=== PATIENT | female | born 1945 | race African-American/Black ===

== ENCOUNTER 2021-01-18 02:25 | Emergency (ER) | payer MEDICARE, MEDICAID, SELFPAY ==
--- NOTE | ~2021-01-18 | XR_ITS ---
EXAMINATION: XR CHEST CLINICAL INFORMATION: Chest pain COMPARISON: None TECHNIQUE: Frontal view of the chest was obtained. FINDINGS: Lung volumes are symmetric. No focal consolidation is seen. No evidence of pneumothorax, pleural effusion, or pulmonary edema. The cardiomediastinal contour is unremarkable. No acute osseous findings are seen. XR/XR chest 1V IMPRESSION: No acute cardiopulmonary findings.
[2021-01-18 02:34] VITALS: BP 155/78; BP 178/80; PULSE 100; PULSE 103; RESP 18; TEMP 37.4; O2SAT 97; O2SAT 98; BMI 35.7
--- NOTE | 2021-01-18 02:40 | ECG_ITS ---
Test Reason : CHEST PAIN Blood Pressure : / mmHG Vent. Rate : 094 BPM Atrial Rate : 094 BPM P-R Int : 194 ms QRS Dur : 074 ms QT Int : 346 ms P-R-T Axes : 039 -37 053 degrees QTc Int : 432 ms Normal sinus rhythm Left axis deviation Inferior infarct , age undetermined Anterior infarct , age undetermined Abnormal ECG No previous ECGs available Referred By: Laurent Parikh Electronically Signed By:STEVIE KEATING
--- NOTE | 2021-01-18 02:41 | ED_ITS ---
HPI - Chest Pain General Chief Complaint: Chest Pain Stated Complaint: CP x20 min Time Seen by Provider: 01/18/21 02:38 Source: patient Mode of arrival: EMS Limitations: no limitations History of Present Illness HPI narrative: Patient has history of hypertension, diabetes, schizoaffective disorder came from prison for chest pain started at 01:50 while patient planning to go to bed patient described her pain as in mid chest burning sensation, patient was given 1 nitroglycerin under tongue and 2 baby aspirin and that relieves the pain. No radiation of pain to the arm or jaw no nausea no vomiting no shortness of breath patient never had similar pain in the past Related Data Allergies Allergy/AdvReac Type Severity Reaction Status Date / Time Penicillins Allergy Unknown hives Verified 01/18/21 02:39 Review of Systems Review of Systems: Yes all other systems are reviewed and are negative [facility] Social History Social History Alcohol intake: never Patient Tobacco Use Status: Never used Tobacco Use of substances other than those prescribed or required for medical reasons: No Advance Directives: No Advance Directives Information Provided: No Physical Exam Vital Signs: Vital Signs: Last Vital Signs Temp 99.3 F 01/18/21 02:43 Pulse 88 01/18/21 03:12 Resp 12 01/18/21 03:12 BP 153/65 H 01/18/21 03:12 Pulse Ox 98 01/18/21 03:12 Body Mass Index 35.7 Appearance: Alert. Oriented X3. No acute distress. Eyes: PERRLA, No Nystagmus ENT: Pharynx normal. Oral Mucosa moist Neck: Normal inspection. Neck supple. CVS: Normal heart rate and rhythm. Pulses normal. Respiratory: No respiratory distress. Equal air entry bilateral, no wheezing/rales/rhonchi Abdomen: Soft and nontender. Bowel sounds are present, no mass palpable, no CVA tenderness Skin: Skin warm and dry. Normal skin color. Normal skin turgor. Extremities: No lower extremity edema. No calf tenderness Neuro: Oriented X 3. No motor deficit. No sensory deficit.No cerebellar signs , cranial nerves II-XII intact MDM - Chest Pain MDM Narrative Medical decision making narrative: Patient atypical chest pain 2 sets of high sensitive troponin negative no acute ischemic changes patient was feeling much better after arrival in the ER advised to follow-up with PCP for further evaluation Differential Diagnosis Differential diagnosis: Likely stable angina, atypical chest pain and costochondritis Lab Data Attestation: I reviewed the patient's lab results. Result diagrams: 01/18/21 02:53 01/18/21 02:53 Labs: Lab Results 01/18/21 01/18/21 01/18/21 Range/Units 02:53 02:53 02:53 WBC 9.8 (4.8-10.8) X10*3/uL RBC 4.16 L (4.20-5.50) X10*6/uL Hgb 12.4 (12.0-16.0) g/dl Hct 37.1 (37-47) % MCV 89.2 (80-98) fL MCH 29.8 (27.0-33.0) pg MCHC 33.4 (31.0-35.0) g/dl RDW 12.4 (11.0-16.0) % Plt Count 301 (160-400) X10*3/uL MPV 9.7 (9.4-12.3) fL Immature Gran % (Auto) 0.5 H (0.0-0.4) % Neut % (Auto) 41.7 L (45-73) % Lymph % (Auto) 48.2 H (20-40) % [place] % (Auto) 6.5 (2-11) % Eos % (Auto) 2.9 (0-4) % Baso % (Auto) 0.2 (0-2) % Lymph # (Auto) 4.7 (1.2-4.9) X10*3/uL [place] # (Auto) 0.6 (0.1-1.2) X10*3/uL Eos # (Auto) 0.3 (0.0-0.4) X10*3/uL Baso # (Auto) 0.0 (0.0-0.2) X10*3/uL Abs Immat Gran (auto) 0.05 H (0.00-0.03) X10*3/uL Absolute Neuts (auto) 4.1 (2.0-8.3) X10*3/uL Absolute Nucleated RBC 0.000 (0.0-0.012) X10*3/uL Nucleated RBC % (auto) 0.0 (0.0-0.2) /100WBC Sodium 135 (135-145) mmol/L Potassium 4.3 (3.3-5.1) mmol/L Chloride 101 (96-108) mmol/L Carbon Dioxide 25 (22-29) mmol/L Anion Gap 13 (12-20) BUN 10 (9-16) mg/dL Creatinine 0.70 (0.5-1.4) mg/dL Estim Creat Clear Calc 79.0 Estimated GFR > 60 Random Glucose 207 H (60-115) mg/dL Calcium 9.5 (8.4-10.2) mg/dL Troponin I High Sens < 3.5 (<3.5-17.0) ng/L 01/18/21 Range/Units 04:52 WBC (4.8-10.8) X10*3/uL RBC (4.20-5.50) X10*6/uL Hgb (12.0-16.0) g/dl Hct (37-47) % MCV (80-98) fL MCH (27.0-33.0) pg MCHC (31.0-35.0) g/dl RDW (11.0-16.0) % Plt Count (160-400) X10*3/uL MPV (9.4-12.3) fL Immature Gran % (Auto) (0.0-0.4) % Neut % (Auto) (45-73) % Lymph % (Auto) (20-40) % [place] % (Auto) (2-11) % Eos % (Auto) (0-4) % Baso % (Auto) (0-2) % Lymph # (Auto) (1.2-4.9) X10*3/uL [place] # (Auto) (0.1-1.2) X10*3/uL Eos # (Auto) (0.0-0.4) X10*3/uL Baso # (Auto) (0.0-0.2) X10*3/uL Abs Immat Gran (auto) (0.00-0.03) X10*3/uL Absolute Neuts (auto) (2.0-8.3) X10*3/uL Absolute Nucleated RBC (0.0-0.012) X10*3/uL Nucleated RBC % (auto) (0.0-0.2) /100WBC Sodium (135-145) mmol/L Potassium (3.3-5.1) mmol/L Chloride (96-108) mmol/L Carbon Dioxide (22-29) mmol/L Anion Gap (12-20) BUN (9-16) mg/dL Creatinine (0.5-1.4) mg/dL Estim Creat Clear Calc Estimated GFR Random Glucose (60-115) mg/dL Calcium (8.4-10.2) mg/dL Troponin I High Sens < 3.5 (<3.5-17.0) ng/L ECG Data ECG #1: Attestation: I personally reviewed and interpreted this ECG as follows: Interpretation: Normal sinus rhythm left axis deviation old inferior infarct poor progression of R-waves no acute ischemic changes Discharge Plan Discharge Clinical Impression: Chest pain
[2021-01-18 02:43] VITALS: BP 178/80; PULSE 103; RESP 18; TEMP 37.4; O2SAT 97
[2021-01-18] MEDS: Nitroglycerin 2 % Oint 1 GM Packet 1 INCH TRANSDERMA (02:52)
[2021-01-18 03:12] VITALS: BP 153/65; PULSE 88; RESP 12; O2SAT 98
[2021-01-18 03:17] LABS: Basophils Percent Auto 0.2 % (0-2); Eosinophils Absolute Auto 0.3 X10*3/uL (0.0-0.4); Eosinophils Percent Auto 2.9 % (0-4); Hematocrit 37.1 % (37-47); Hemoglobin 12.4 g/dl (12.0-16.0); Imm Gran Abs Auto 0.05 X10*3/uL (0.00-0.03); Imm Gran Pct Auto 0.5 % (0.0-0.4); Lymphocytes Absolute Auto 4.7 X10*3/uL (1.2-4.9); Lymphocytes Percent Auto 48.2 % (20-40); MANUAL DIFF FLAG NO; Mean Corpuscular HGB Conc 33.4 g/dl (31.0-35.0); Mean Corpuscular Hemoglobin 29.8 pg (27.0-33.0); Mean Corpuscular Volume 89.2 fL (80-98); Mean Platelet Volume 9.7 fL (9.4-12.3); Monocytes Absolute Auto 0.6 X10*3/uL (0.1-1.2); Monocytes Percent Auto 6.5 % (2-11); Neutrophils Absolute Auto 4.1 X10*3/uL (2.0-8.3); Neutrophils Percent Auto 41.7 % (45-73); Platelet Count 301 X10*3/uL (160-400); Red Blood Count 4.16 X10*6/uL (4.20-5.50); Red Cell Distribution Width 12.4 % (11.0-16.0); White Blood Count 9.8 X10*3/uL (4.8-10.8)
[2021-01-18 03:33] LABS: Anion Gap 13 (12-20); Blood Urea Nitrogen 10 mg/dL (9-16); Calcium 9.5 mg/dL (8.4-10.2); Carbon Dioxide 25 mmol/L (22-29); Chloride 101 mmol/L (96-108); Estimated Glomerular Filt Rate > 60; Glucose Random 207 mg/dL (60-115); Potassium 4.3 mmol/L (3.3-5.1); Sodium 135 mmol/L (135-145)
[2021-01-18 03:38] LABS: Troponin-I High Sensitivity < 3.5 ng/L (<3.5-17.0)
[2021-01-18 05:15] LABS: Troponin-I High Sensitivity < 3.5 ng/L (<3.5-17.0)
[2021-01-18 05:56] VITALS: BP 117/50; PULSE 82; RESP 15; TEMP 37; O2SAT 96
--- NOTE | 2021-01-18 06:13 | PC.NURSE ---
Pt alert and oriented, at baseline mental status. Pt denies pain, pt denies chest pain. Pt denies SOB. IV removed. Vitals stable. 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
[2021-01-18 08:00] VITALS: BP 122/52; PULSE 80; RESP 18; TEMP 37; O2SAT 96
== END 2021-01-18 08:08 | disposition skilled nursing facility (03) ==
PROVIDERS: Emergency Provider Internal Medicine; PCP Internal Medicine
DX: R07.9 Chest pain, unspecified (principal); R79.89 Other specified abnormal findings of blood chemistry; Z79.899 Other long term (current) drug therapy
CPT/HCPCS: 36415; 71045; 80048; 84484; 85025; 93005; 99283; 99285

== ENCOUNTER 2022-10-11 07:53 | Outpatient (REF) | payer MEDICARE, MEDICAID, SELFPAY ==
--- NOTE | ~2022-10-11 | MM_ITS ---
EXAMINATION: MM DIAGNOSTIC DIGITAL BREAST TOMOSYNTHESIS, BILATERAL US DIAGNOSTIC ULTRASOUND BREAST, RIGHT CLINICAL INFORMATION: 77-year-old with palpable mass posterior upper outer right breast. Prior remote mammography reported to be over a decade ago from the [place] area and unavailable. TC score under 3%. COMPARISON: None (current study represents new baseline exam). TECHNIQUE: Digital breast tomosynthesis is performed in both the craniocaudal and mediolateral oblique views along with computer-aided detection (CAD). Synthesized 2D images are generated from the tomosynthesis. Additional views are provided: Exaggerated right CC, magnification bilateral CC, magnification right ML x2, magnification left ML. Ultrasound right breast is targeted to the mass posterior upper outer quadrant along with the axilla. Grayscale imaging and color Doppler are performed without and with harmonics. FINDINGS: Mammography: There are scattered areas of fibroglandular density (ACR BI-RADS breast composition Category b). Right breast has 5.5 cm mass at site of clinical concern posterior upper outer quadrant. Margins are mostly smooth but there are small areas posteriorly and lower anterior which are ill-defined. There are some scattered nonspecific calcifications at the anterior aspect of the lesion. There are also incidental benign vascular and medial right ductal secretory calcifications. The axilla and skin contours are unremarkable. Left breast shows no mass or architectural abnormality. There are scattered benign coarse and vascular calcifications. A group of coarse calcifications central lower breast mid depth show fine adjacent amorphous calcifications on additional magnification views. The left axilla and skin contours are unremarkable. Ultrasound: Ultrasound right breast demonstrates a macrolobulated heterogeneous hypoechoic mass at site of clinical concern posterior upper outer breast measuring approximately 5.5 x 4.1 x 4.8 cm. There are some scant surrounding color flow. No definite internal color flow. Additional imaging right axilla shows no enlarged node or node with obvious thick cortex. Management: Results are discussed with the patient at time of visit. Ultrasound-guided core biopsy of the right breast mass is recommended. Also suggest attempt at stereotactic biopsy of the amorphous mid left breast calcifications. Results and recommendations are called to the nursing services specialist (Amparo Keller) at [facility] for Dr. Henri Oh on 10/11/2022. MM/MM tomosynthesis diagnostic BI IMPRESSION: Right: -5 cm mass posterior upper outer quadrant corresponding to the palpable concern. Left: -Fine amorphous calcifications adjacent to benign coarse calcifications mid lower central breast. ASSESSMENT: BI-RADS 4: Suspicious RECOMMENDATION: -Right: Ultrasound-guided core biopsy right breast mass posterior upper outer quadrant. -Left: Stereotactic biopsy amorphous calcifications lower central mid left breast. This patient's information was entered into a reminder system with a target due date for their next breast imaging procedure.
== END 2022-10-11 07:54 | disposition home or self-care (01) ==
LOC: HO.MAMMO 07:53
PROVIDERS: PCP Emergency Medicine; Visit Provider Emergency Medicine
DX: N63.15 Unspecified lump in the right breast, overlapping quadrants (principal)
CPT/HCPCS: 76642; 77062; 77066

== ENCOUNTER 2022-10-21 08:56 | Outpatient (REF) | payer MEDICARE, MEDICAID, SELFPAY ==
--- NOTE | ~2022-10-21 | MM_ITS ---
EXAMINATION: ULTRASOUND GUIDED CORE BIOPSY BREAST, RIGHT POST PROCEDURE DIGITAL MAMMOGRAM, RIGHT CLINICAL INFORMATION: 5 cm heterogeneous hypoechoic mass posterior upper outer right breast corresponding to area of palpable concern. Scant surrounding color flow. No definite internal color flow. COMPARISON: Mammography and right breast ultrasound 10/11/2022, outside mammography 02/21/2014 ([facility]). FINDINGS: Proper informed consent is obtained from the patient's daughter who serves as legal guardian after discussion of the procedure, potential risks and complications, and alternatives. The legal guardian was given an opportunity for questions and appeared to understand. The legal guardian consented to the procedure and signed the consent form. GUIDANCE: Ultrasound-guided; aseptic technique. LESION: 5 cm oval mass posterior upper outer right breast. APPROACH: Lateral medial. ANESTHESIA: 15 mL carbonated 1% lidocaine. DERMATOTOMY: Single skin delvin dermatotomy performed. NEEDLE: 14-gauge Achieve core biopsy device with 13.5-gauge co-axial guide needle. Six (6) core specimens are obtained. There is hemorrhagic possibly purulent fluid also retrieved and two 10 mL syringe sent to lab for both cytology and microbiology. CLIP: HydroMARK; shape: open coil. POST PROCEDURE UNILATERAL DIGITAL MAMMOGRAM: The post biopsy mammogram is performed in separate room using separate digital mammography equipment from the biopsy procedure. Patient was only able to tolerate a single right CC view. There are scattered areas of fibroglandular density (breast composition category: b). The clip marker is in position overlying the large mass sampled. The mass extends beyond the posterior field of view. The patient tolerated the procedure well. No immediate complications. Home instructions reviewed with the patient and her daughter. Final pathology results are pending. Procedure results called to medical massage therapist (Marlyn) for Dr. Sanchez on 10/21/2022. MM/MM diagnostic mammo unilat RT IMPRESSION: 1. Status post ultrasound-guided core biopsy and aspiration right breast with clip placement. 2. Specimens pending (histology, cytology, microbiology). An addendum report will be issued by Dr. Ramirez.
== END 2022-10-21 08:57 | disposition home or self-care (01) ==
LOC: HO.MAMMO 08:56
PROVIDERS: PCP Emergency Medicine; Visit Provider Surgery
DX: R92.8 Other abnormal and inconclusive findings on diagnostic imaging of breast (principal)
CPT/HCPCS: 19083; 77062; 77065; 87070; 87073; 87205; 88112; 88305; 88341; 88342; 88360; 99202; A4648

== ENCOUNTER → 2022-10-28 09:44 | Outpatient (BNVA) | payer MEDICARE, MEDICAID, SELFPAY | PROVIDERS: PCP Emergency Medicine; Referring Provider Radiology Diagnostic Radiology; Visit Provider Surgery | DX: C50.911 Malignant neoplasm of unspecified site of right female breast (principal) | CPT/HCPCS: 99212 ==

== ENCOUNTER → 2022-11-08 11:13 | Outpatient (BNV) | payer MEDICARE, MEDICAID, SELFPAY | PROVIDERS: PCP Emergency Medicine; Visit Provider Internal Medicine | DX: C50.911 Malignant neoplasm of unspecified site of right female breast (principal) | CPT/HCPCS: 99205; 99212; 99215 ==

== ENCOUNTER → 2022-11-17 06:46 | Day surgery (SDC) | payer MEDICARE, MEDICAID, SELFPAY | PROVIDERS: PCP Emergency Medicine; Visit Provider Radiology Diagnostic Radiology | DX: C50.911 Malignant neoplasm of unspecified site of right female breast (principal); Z53.8 Procedure and treatment not carried out for other reasons; Z17.1 Estrogen receptor negative status [ER-]; F03.93 Unspecified dementia, unspecified severity, with mood disturbance; F25.0 Schizoaffective disorder, bipolar type; E11.9 Type 2 diabetes mellitus without complications; Z79.899 Other long term (current) drug therapy; Z79.84 Long term (current) use of oral hypoglycemic drugs; Z88.0 Allergy status to penicillin | CPT/HCPCS: J2250; J3010 ==

== ENCOUNTER 2022-12-01 11:26 | Outpatient (AMB) | payer MEDICARE, MEDICAID, SELFPAY ==
--- NOTE | 2022-12-01 11:32 | A.OFFVIS_ITS ---
Intake Vital Signs 12/01/22 11:42 Height 5 ft Weight 215 lb BMI 42.0 BP 160/80 H Blood Pressure Location Lt brachial Position Sitting Pulse 118 H Intake Visit Reasons: 1 mth follow up RT breast u/s bx Intake Note: Patient is seen in office for one month follow up visit, following right breast. Patient c/o: denies any concerns regarding the breast Foot Miter Operator Required: No Accompanied by: Other Relationship Allergies Penicillins Allergy (Unknown, Verified 12/01/22 11:43) hives Medication List - Last Reconciled 12/01/22 by Evens Sanchez MD acetaminophen 650 mg PO Q4H PRN amantadine HCl 100 mg PO BID amlodipine 2.5 mg PO DAILY aspirin (Adult Aspirin Regimen) 81 mg PO DAILY bisacodyl 10 mg TX DAILY PRN cholecalciferol (vitamin D3) 1,250 mcg PO QWEEK cyanocobalamin (vitamin B-12) 1,000 mcg PO DAILY dextrose 40% (Glutose-15) 10 grams PO Q15M PRN glycopyrrolate (Robinul) 1 mg PO BID haloperidol 5 mg PO DAILY lisinopril 20 mg PO DAILY lorazepam 2 mg PO DAILY PRN magnesium hydroxide (Jamison Milk of Magnesia) 5 mL PO DAILY PRN metformin 1,000 mg PO BID ondansetron 8 mg PO Q8H PRN paliperidone ER (Invega) 6 mg PO QAM simvastatin 10 mg PO BEDTIME sodium phosphates 19-7 gram/118 mL (Fleet Enema) 118 mL TX DAILY PRN tolnaftate 1% (Tinactin) 1 spray topical DAILY trazodone 150 mg PO BEDTIME valproic acid (as sodium salt) 1,500 mg PO DAILY HPI HPI Comments History of Present Illness Details 77-year-old female patient returning for follow-up breast examination. She has a previous history of dementia, schizoaffective disorder, type 2 diabetes, COPD and previous left breast CA now presenting with a recent mammogram which revealed a large mass in the right axilla and suspicious cluster of calcifications in the left breast. She was scheduled for a stereotactic guided core biopsy of the left breast and ultrasound-guided core biopsy of the right breast at the [facility] 10/21/2022. She is and did not breast feed. She does not remember the specifics regarding her left breast cancer. Pathology from the right breast ultrasound-guided core biopsy revealed invasive carcinoma, grade 3 with squamous features and necrosis, ductal carcinoma is favored. Hormone receptor: Triple negative, high Ki 67. She was evaluated by Dr. Lenz and metastatic workup requested including PET scan. A MediPort insertion was also recommended. To date neither of these have been performed. [facility] Medical History Invasive ductal carcinoma of right breast Schizoaffective disorder, bipolar type Type 2 diabetes mellitus without complication Unspecified dementia, unspecified severity, with mood disturbance Surgical History History of lumpectomy of left breast History of surgery on extremity Family History Mother Breast CA Social History Household Members: Caregiver and Other Housing: Correction Alcohol intake: never Patient Tobacco Use Status: Never used Tobacco Current occupational status: disabled Review of Systems Const Unobtainable due to mental condition Physical Exam Vital Signs: Last Vital Signs Pulse 118 H 12/01/22 11:42 BP 160/80 H 12/01/22 11:42 BMI result Body Mass Index 42.0 Const General: cooperative and no acute distress Nutritional Appearance: well nourished Orientation/consciousness: patient oriented x3 Limitations: no limitations HEENT Head: Yes normocephalic and Yes atraumatic Ears: hearing grossly normal bilaterally Chest Other: Large palpable mass in the right axilla measuring approximately 8 cm in diameter firm but mobile within the breast tissue. No skin changes, no nipple discharge, several enlarged lymph nodes appreciated in the right axilla. No other palpable mass. Left breast with an incision in the upper outer quadrant. No palpable mass, skin change, nipple discharge or enlarged lymph nodes. Resp Effort & Inspection: normal respiratory effort, no audible wheezes, no cough and no respiratory distress Cardio Jugular venous distension: no JVD GI Inspection: Yes normal to inspection Skin Other: Warm, dry, no rash Neuro General: patient oriented x3 Extrem General: Yes no clubbing, cyanosis or edema Assessment & Plan Assessment & Plan (1) Invasive ductal carcinoma of right breast: Code(s): C50.911 - Malignant neoplasm of unspecified site of right female breast Plan 77-year-old female patient with a new right breast carcinoma and a previous history of left breast carcinoma. A mass in the right breast at the upper outer quadrant as well as area of calcification in the left breast was noted by mammogram. The patient was unable to tolerate stereotactic guided core biopsy of the left breast therefore six-month follow-up mammogram is recommended. Ultrasound-guided core biopsy of the right breast at the upper outer quadrant was performed on 10/21/2022. Pathology findings revealed invasive carcinoma, grade 3, with squamous features and necrosis, ductal carcinoma is favored. Patient will continue her follow-up with Oncology for further management. PET scan is pending. She is a candidate for neoadjuvant chemotherapy and will return following treatment for possible surgical management. Coding Level of Care Code Est Pt Level 3 (67576) Diagnoses Invasive ductal carcinoma of right breast C50.911
[2022-12-01 11:42] VITALS: BP 160/80; PULSE 118; BMI 42.0
== END 2022-12-01 11:54 | disposition home or self-care (01) ==
PROVIDERS: PCP Emergency Medicine; Visit Provider Surgery
DX: C50.911 Malignant neoplasm of unspecified site of right female breast (principal)
CPT/HCPCS: 99213

== ENCOUNTER → 2022-12-01 11:26 | Outpatient (BNVA) | payer MEDICARE, MEDICAID, SELFPAY | PROVIDERS: PCP Emergency Medicine; Visit Provider Surgery | DX: C50.411 Malignant neoplasm of upper-outer quadrant of right female breast (principal) | CPT/HCPCS: 99212 ==

== ENCOUNTER 2023-01-24 12:05 | Emergency (ER) | payer MEDICARE, MEDICAID, SELFPAY ==
[2023-01-24 12:17] VITALS: BP 110/60; BP 142/74; PULSE 60; PULSE 63; RESP 16; TEMP 36.5; O2SAT 96; O2SAT 98; BMI 36.3
[2023-01-24 12:28] VITALS: BP 148/51; PULSE 72; RESP 20; TEMP 36.6; O2SAT 99
--- NOTE | 2023-01-24 12:29 | ED_ITS ---
HPI - General Adult General Chief complaint: General Medical Stated complaint: L BREAST PAIN,H/O STAGE 4 BREAST CA, FROM SNF PER Time Seen by Provider: 01/24/23 12:13 Source: patient, EMS and old records reviewed Mode of arrival: EMS Limitations: no limitations History of Present Illness HPI narrative: 77 yo female with history of COPD, DM2, dementia, schizoaffective disorder, stage IV invasive ductal carcinoma of the right breast diagnosed 10/2022 with mets to the lung, hx left breast cancer 10+ years ago s/p lumpectomy and 5 years of tamoxifen who presents to the ER from assisted living for evaluation of right breast pain. She follows [facility]/ Dr. Lenz and last saw her in the office on 01/18/23. Palliative chemo was discussed and patient declined. She stated she was ready to if it was her time. At the assisted living she has been having worsening pain of the right breast. She was started on tramadol as well as oxycodone with minimal relief. MD complaint: painful right breast mass Onset (ago): day(s) Location: chest Severity: severe Quality: stabbing and aching Pain Consistency: constant Relieving factors: none Exacerbating factors: movement Associated symptoms: denies other symptoms Treatments prior to arrival: none Related Data Home Medications Medication Instructions Recorded Confirmed amantadine HCl 100 mg capsule 100 mg PO BID 10/21/22 01/24/23 amlodipine 2.5 mg tablet 2.5 mg PO DAILY 10/21/22 01/24/23 aspirin 81 mg tablet,delayed 81 mg PO DAILY 10/21/22 01/24/23 release (Adult Aspirin Regimen) cholecalciferol (vitamin D3) 1,250 1,250 mcg PO QWEEK 10/21/22 01/24/23 mcg (50,000 unit) tablet cyanocobalamin (vitamin B-12) 1,000 mcg PO DAILY 10/21/22 01/24/23 1,000 mcg capsule glycopyrrolate 1 mg tablet 1 mg PO BID 10/21/22 01/24/23 (Robinul) haloperidol 5 mg tablet 5 mg PO Q90D 10/21/22 01/24/23 lisinopril 20 mg tablet 20 mg PO DAILY 10/21/22 01/24/23 metformin 1,000 mg tablet 1,000 mg PO BID 10/21/22 01/24/23 simvastatin 10 mg tablet 10 mg PO DAILY@1700 10/21/22 01/24/23 trazodone 150 mg tablet 150 mg PO DAILY@1700 10/21/22 01/24/23 valproic acid (as sodium salt) 250 1,500 mg PO DAILY 10/21/22 01/24/23 mg/5 mL oral solution acetaminophen 325 mg tablet 650 mg PO Q4H PRN Fever Or Pain 11/10/22 01/24/23 paliperidone 6 mg tablet,extended 6 mg PO DAILY 11/10/22 01/24/23 release 24 hr (Invega) tolnaftate 1 % topical spray 1 spray topical WE 11/10/22 01/24/23 powder (Tinactin) lorazepam 2 mg tablet 2 mg PO Q90D PRN Anxiety 01/24/23 01/24/23 paliperidone palm (3 month) 819 819 mg IM Q90D 01/24/23 01/24/23 mg/2.63 mL intramuscular syringe (Invega Trinza) tramadol 50 mg tablet 50 mg PO Q8H PRN Pain 01/24/23 01/24/23 Previous Rx's Medication Instructions Recorded atropine 1 % eye drops 2 drp buccal Q2H PRN secretions 01/24/23 #30 mL haloperidol lactate 2 mg/mL oral 2 mg PO Q4H PRN agitation #30 mL 01/24/23 concentrate morphine concentrate 100 mg/5 mL 5 mg (0.25 mL) PO Q1H PRN pain #30 01/24/23 (20 mg/mL) oral solution mL Allergies Allergy/AdvReac Type Severity Reaction Status Date / Time Penicillins Allergy Unknown hives Verified 12/01/22 11:43 Review of Systems 2 Review of Systems: Yes all other systems are reviewed and are negative [facility] Past Medical History Medical History Invasive ductal carcinoma of right breast Schizoaffective disorder, bipolar type Type 2 diabetes mellitus without complication Unspecified dementia, unspecified severity, with mood disturbance Surgical History History of lumpectomy of left breast History of surgery on extremity Family History Family History Mother Breast CA Social History Social History Household Members: Caregiver and Other Housing: Alf Alcohol intake: never Patient Tobacco Use Status: Never used Tobacco Use of substances other than those prescribed or required for medical reasons: No Advance Directives: Yes Advance Directives on File: Yes Advance Directives Date on File: 11/08/22 Current occupational status: disabled Physical Exam ED Vital Signs: Vital Signs - 24 hr 01/24/23 12:17 01/24/23 12:28 Temperature 97.7 F 97.8 F Pulse Rate 63 72 Respiratory Rate 16 20 Blood Pressure 142/74 H 148/51 H Pulse Oximetry 98 99 Oxygen Delivery Method Room Air BMI result Body Mass Index 36.3 Appearance: Alert. Oriented X2. Pleasant Head: normocephalic, atraumatic. Eyes: Pupils equal, round and reactive to light. ENT: Pharynx normal. No dentition. No tonsillar swelling or exudate. Neck: Normal inspection. Neck supple. CVS: Normal heart rate and rhythm. Pulses normal. Respiratory: No respiratory distress. Breath sounds normal. Abdomen: Soft and nontender. +BS x4 Skin: Skin warm and dry. Normal skin color. right lateral breast with a large tender, erythematous, fluctuant mass. Extremities: No lower extremity edema. No joint swelling. Neuro/psych: Oriented X 2. nonfocal. confused at times, poor historian, nonfocal Medications Administered Discontinued Medications Generic Name Dose Route Start Last Admin Trade Name Freq PRN Reason Stop Dose Admin Morphine Sulfate 15 mg 01/24/23 13:08 01/24/23 13:12 Morphine Sulfate Immed Release 15 Mg Tablet PO 01/24/23 13:09 15 mg ONCE ONE Administration Medical Decision Making Medical Decision Making MDM Narrative: 77 yo female with stage IV breast cancer with large 9.5cm necrotizing right sided breast mass who recently declined palliative chemotherapy here with worsening right breast pain. Dr. Sanchez came to evaluate the patient - does not recommend I&D at this time. Discussed w/ patient's daughter and guardian Ernestine in [place]. Recommended transition to hospice care/ comfort care and she was on board. case management consulted in the ER - PO morphine given case d/w Chanel from Oncology as well. Dr. Lenz [place] country - recommending palliative care when case management spoke [facility]/ Ernestine she was not ready for full transition to hospice but does want her mother to be comfortable. she wants adequate pain control started. facility is recommending starting pain control, observing in the ER to ensure adequate pain control, to make sure she does not require IV narcotics and admission will place in physician observation at this time (15:51). PO diet and liquid morphine ordered. will continue to monitor Differential Diagnosis Differential Diagnoses: The differential diagnosis associated with the presentation includes necrotic cancerous mass, cellulitis, abscess, fungal infection Admission/Observation Consideration of admission/observation: Escalation of care including admission/observation considered Consult Healthcare Provider Management of the patient was discussed with: Deck Steward Dr. Lenz External Record Review External record reviewed: Office record, Outpatient record, Prior outpatient labs and Prior outpatient radiology Prescription Management I considered prescription management with: Pain Medication Chronic Conditions Patient?s care impacted by: Other (stage IV breast cancer) Critical Care Time Critical Care Time Critical Care Time: No Discharge Plan Discharge Clinical Impression: Invasive ductal carcinoma of right breast Patient Disposition: er [facility] Transfer Details: [facility] Instructions: Breast Cancer in Women (DC) Additional Instructions: Give the prescribed medications as needed for your symptoms. Follow up with Dr. Lenz If you develop new or worsening symptoms call 911 or come back to the ER for further evaluation. Prescriptions: New morphine concentrate 100 mg/5 mL (20 mg/mL) solution 5 mg PO Q1H PRN (Reason: pain) Qty: 30 0RF Rx Instructions: Hospice patient Partial Fill upon patient request. haloperidol lactate 2 mg/mL concentrate 2 mg PO Q4H PRN (Reason: agitation) Qty: 30 0RF atropine 1 % drops 2 drp buccal Q2H PRN (Reason: secretions) Qty: 30 0RF No Action Invega Trinza 819 mg/2.63 mL syringe 819 mg IM Q90D lorazepam 2 mg tablet 2 mg PO Q90D PRN (Reason: Anxiety) Rx Instructions: GIVEN 1 HOUR BEFORE INVEGA TRINZA INJECTION tramadol 50 mg Tablet 50 mg PO Q8H PRN (Reason: Pain) acetaminophen 325 mg Tablet 650 mg PO Q4H PRN (Reason: Fever Or Pain) tolnaftate [Tinactin] 1 % Aerosol Powder 1 spray TOPICAL WE Rx Instructions: APPLY WEEKLY AFTER SHOWER paliperidone [Invega] 6 mg tablet extended release 24 hr 6 mg PO DAILY Rx Instructions: GIVE WHOLE IN LARGE AMOUNTS OF PUDDING TO HELP WITH SWALLOWING THIS PILL. simvastatin 10 mg tablet 10 mg PO DAILY@1700 trazodone 150 mg tablet 150 mg PO DAILY@1700 haloperidol 5 mg tablet 5 mg PO Q90D Rx Instructions: GIVEN 1 HOUR BEFORE INVEGA TRINZA INJECTION amlodipine 2.5 mg tablet 2.5 mg PO DAILY aspirin [Adult Aspirin Regimen] 81 mg tablet,delayed release (DR/EC) 81 mg PO DAILY lisinopril 20 mg tablet 20 mg PO DAILY cyanocobalamin (vitamin B-12) 1,000 mcg capsule 1,000 mcg PO DAILY valproic acid (as sodium salt) 250 mg/5 mL solution 1,500 mg PO DAILY Rx Instructions: MIX IN SMALL AMOUNTS OF BEVERAGE TO HELP ADMINISTRATION cholecalciferol (vitamin D3) 1,250 mcg (50,000 unit) tablet 1,250 mcg PO QWEEK Rx Instructions: ADMINISTER ON THE OF EACH MONTH amantadine HCl 100 mg capsule 100 mg PO BID glycopyrrolate [Robinul] 1 mg tablet 1 mg PO BID metformin 1,000 mg tablet 1,000 mg PO BID Referrals: [facility] Oncology/Hematology [Provider Group] (stage IV breast cancer, transition to hospice)
--- NOTE | 2023-01-24 12:36 | PC.NURSE ---
pt alert, confused at baseline. reporting 10/10 right breast pain. right lateral side of right breast is enlarged, red and firm. Per EMS, pt is followed by Dr. Lenz here at [facility] and that they planed to meet here today. Pt changed over to hospital gown. plan of care ongoing
[2023-01-24] MEDS: Morphine Sulfate Immed Release 15 MG TABLET PO (13:12)
--- NOTE | 2023-01-24 14:42 | PHA.MEDREC ---
Pharmacy Consult ? Medication Reconciliation Pharmacy has completed the medication reconciliation. MED REC COMPLETE USING LIST FROM [facility]
--- NOTE | 2023-01-24 15:57 | MHC.CM.ED ---
Addendum entered by Jemima Giron 01/24/23 16:20: Dr Sanchez saw patient while she was in the ER to look at her wound. There is nothing surgical Dr Sanchez can do for patient. Original Note: Received case management consult from Stacey QUIJANO. Patient is a custodial care resident of [facility]. Patient has stage 4 Breast Cancer will lung mets. Patient was sent to the ER due to poor pain control. Patient was given oral Morphine. Stacey QUIJANO spoke with Chanel of oncology. The thought was patient would return to [facility] under hospice. Stacey QUIJANO had a conversation with patient's daughter/guardian, Ernestine, via telephone. Stacey was under the impression patient would return to [facility] with hospice. T/W spoke with Ernestine via telephone at [phone]. Ernestine doesn't feel patient is ready for hospice. Ernestine is interested in pain control and any other testing to help patient. Ernestine requesting hospice information be sent via email. This information was sent via email by T/W. [facility] referral made in [facility]. . Rebecca spoke with Ernestine. Ernestine doesn't feel she is ready to sign the patient onto hospice at this time. Spoke with Emmie, 3rd floor nurse delicatessen department manager of [facility]. Patient will stay in the ER overnight to make sure adequate pain control is being achieved with oral medication. Stacey QUIJANO aware and agreeable. Anticipate patient will return to [facility] via BLS tomorrow. Continue to monitor for d/c needs.
--- NOTE | 2023-01-24 17:30 | PC.NURSE ---
It was brought to my attention pt not in room. This RN and staff searching for pt and unable to find. Hermes on bed pt clothes gone. Security alerted and checking cameras contract technician
--- NOTE | 2023-03-21 14:02 | MHC.HEMONC ---
Triage- Pt's daughter to inform the dept that her mum this morning
== END 2023-01-24 18:21 | disposition left against medical advice (07) ==
PROVIDERS: Emergency Provider Emergency Medicine; PCP Emergency Medicine
DX: C50.911 Malignant neoplasm of unspecified site of right female breast (principal); C78.00 Secondary malignant neoplasm of unspecified lung; E11.9 Type 2 diabetes mellitus without complications; J44.9 Chronic obstructive pulmonary disease, unspecified; F03.90 Unspecified dementia, unspecified severity, without behavioral disturbance, psychotic disturbance, mood disturbance, and anxiety; Z85.3 Personal history of malignant neoplasm of breast

== ENCOUNTER 2023-01-24 17:59 | Emergency (ER) | payer MEDICARE, MEDICAID, SELFPAY ==
--- NOTE | ~2023-01-24 | CT_ITS ---
EXAMINATION: CT CHEST, ABDOMEN AND PELVIS WITHOUT CONTRAST CLINICAL INFORMATION: Pain status-post fall; question rib or hip fracture; breast cancer. COMPARISON: Mammograms, right breast ultrasound and ultrasound-guided right breast biopsy dated 10/21/2022. TECHNIQUE: Multidetector volumetric imaging was performed from the thoracic inlet through the pubic symphysis without oral or intravenous contrast. Sagittal and coronal reformatted images were obtained on the technologist workstation. This CT examination was performed using dose optimization techniques as appropriate, variously including the following: *Automated exposure control. *Adjustment of mA and/or kV according to patient size (this includes techniques or standardized protocols for targeted exams where dose is matched to indication/reason for exam, i.e., extremities or head). *Use of iterative reconstruction technique. DLP: 1666 mGy-cm. FINDINGS: CHEST: LUNGS: Within the anterior segment of the right upper lobe laterally (8:149), a 1.2 x 1.0 cm nodule is seen. Within the medial basal segment of the right lower lobe (8:253), a 3.7 x 3.5 cm mass is is seen. Within the anterior segment of the left upper lobe (8:96), a 1.1 x 0.5 cm nodule is seen. Centrally within the left lower lobe (8:232), a 1.5 x 1.5 cm nodule is seen. There is bibasilar dependent hypoaeration. No infiltrate or groundglass opacity is seen. No contusion is noted. There is mild generalized small airway thickening, likely infectious or inflammatory in etiology. The central airways appear patent. MEDIASTINUM: The thyroid is unremarkable. There is no thoracic aortic aneurysm. There are atherosclerotic calcifications of the great vessel origins and thoracic aorta. There is mild atherosclerotic calcification of the coronary arteries and aortic annulus. No mediastinal or hilar lymphadenopathy is seen. PERICARDIUM/PLEURA: There is no significant effusion. No pleural mass or thickening. CHEST WALL/AXILLA: There is an incompletely covered very large right breast mass, consistent with a known large invasive breast cancer. There are enlarged right axillary lymph nodes, the largest measuring 1.5 x 1.4 cm (5:23). No left axillary lymphadenopathy or bilateral internal mammary lymphadenopathy is seen. OSSEOUS STRUCTURES: There is multi-level lower cervical and thoracic degenerative disc disease and spondylosis, most pronounced at C6-C7 and T8-T9 through T10-T11, where there is vacuum disc phenomenon. There is calcific tendinitis of the left rotator cuff insertion. No acute or aggressive osseous finding is noted. ABDOMEN/PELVIS: LIVER, GALLBLADDER, BILIARY TREE: The liver is normal in size, shape, and attenuation. No focal hepatic lesion or biliary ductal dilatation is present. The gallbladder is unremarkable with no evidence of radiopaque gallstones, gallbladder wall thickening, or pericholecystic inflammatory changes. PANCREAS: Unremarkable. SPLEEN: Unremarkable. ADRENAL GLANDS: Unremarkable. KIDNEYS AND URETERS: The kidneys are normal in size, shape, and attenuation. No hydronephrosis or hydroureter or calculi seen. No perinephric stranding. BLADDER: Unremarkable. GASTROINTESTINAL TRACT: There is mild diverticulosis, without acute diverticulitis. No bowel obstruction, free intraperitoneal air or abscess is seen. There is no focal bowel wall thickening. The vermiform appendix appears normal. ABDOMINAL WALL: There is a tiny fat-containing umbilical hernia. LYMPH NODES: Normal. VASCULAR: There is mild aortoiliac atherosclerotic calcification. No abdominal aortic aneurysm is seen. PELVIC VISCERA: The uterus and adnexa are unremarkable. OSSEOUS STRUCTURES: There is marked degenerative disc disease at L5-S1, with vacuum disc phenomenon. There is multi-level marked lower thoracic spondylosis. No acute or aggressive osseous abnormality is seen. CT/CT abdomen pelvis wo IV con IMPRESSION: 1. Multiple bilateral pulmonary nodules are seen, and there is a 3.7 cm mass lesion noted at the medial basal segment of the right lower lobe. In the setting of no invasive breast cancer, these are highly suspicious for metastases. Further work-up is recommended, possibly to include PET/CT and/or CT-guided biopsy. 2. No pulmonary contusion, effusion, hemothorax or pneumothorax is seen. 3. A large right breast cancer is redemonstrated. There are mildly enlarged right axillary lymph nodes. 4. There is no abdominopelvic ascites or hemorrhage. No parenchymal organ laceration or hematoma is noted. There is no pneumoperitoneum. 5. There are multi-level degenerative changes of the lower cervical, thoracic and lumbar spine. No acute or aggressive osseous finding is noted. In particular, no rib or hip fracture is appreciated.
--- NOTE | ~2023-01-24 | CT_ITS ---
EXAMINATION: CT HEAD WITHOUT CONTRAST CT CERVICAL SPINE WITHOUT CONTRAST CLINICAL INFORMATION: Fall. History of breast cancer. COMPARISON: None available. TECHNIQUE: Contiguous axial imaging was performed from the skull base to vertex without intravenous administration of contrast. Contiguous axial imaging was performed from the upper chest through the skull base without intravenous administration of contrast. Coronal and sagittal reformats were obtained at the acquisition workstation. This CT examination was performed using dose optimization techniques as appropriate, variously including the following: *Automated exposure control. *Adjustment of mA and/or kV according to patient size (this includes techniques or standardized protocols for targeted exams where dose is matched to indication/reason for exam; i.e. extremities or head). *Use of iterative reconstruction technique. DLP: 1252 mGy-cm FINDINGS: Head: There is no evidence of acute intracranial hemorrhage or edematous territorial infarction. Reynoso-white matter differentiation is preserved. Scattered and partially confluent hypoattenuation in the periventricular and deep white matter are consistent with moderate microangiopathy. Proportional prominence of the ventricles and sulcal spaces without evidence of obstructive hydrocephalus. Normal posterior callosal angle. Doris subgaleal the sella turcica is mildly expanded with flattening of the pituitary gland. No abnormal mass effect or midline shift. No extra-axial fluid collections. No acute soft tissue or osseous abnormalities. Mild to moderate mucosal thickening of the paranasal sinuses. The mastoid air cells and middle ear cavities are clear. Cervical Spine: The atlantooccipital and atlantoaxial articulations remain well aligned. Mild reversal the normal cervical lordosis centered on C6-C7. Otherwise, there is anatomic alignment of the vertebral bodies and posterior elements. No evidence of acute fracture or subluxation. The vertebral body heights are maintained. Advanced degenerative disc disease at C6-C7. Facet and uncovertebral joint arthropathy leads to osseous encroachment on the neural foramina from C6-C7. There is no prevertebral soft tissue swelling. The thyroid gland and remaining cervical soft tissues are within normal limits. There is a 1 cm irregular opacity in the anterior aspect of the left upper lobe (better evaluated on concurrent CT of the chest). CT/CT cervical spine wo IV con IMPRESSION: 1. No evidence of acute intracranial hemorrhage or edematous territorial infarction. 2. No evidence of acute fracture or traumatic subluxation of the cervical spine. 3. Moderate underlying microangiopathy and generalized cerebral volume loss. 4. Mild to moderate degenerative spondyloarthropathy of the cervical spine. 5. There is a 1 cm irregular opacity in the anterior aspect of the left upper lobe (better evaluated on concurrent CT of the chest).
[2023-01-24 18:10] VITALS: BP 144/82; PULSE 103; PULSE 135; RESP 18; TEMP 37.5; O2SAT 94; BMI 37.1
[2023-01-24 18:20] VITALS: BP 106/52; PULSE 102; O2SAT 92
--- NOTE | 2023-01-24 18:37 | ED_ITS ---
HPI - General Adult General Chief complaint: Fall Stated complaint: TRAMAUTIC INJURY FOUND ON SIDEWALK Time Seen by Provider: 01/24/23 18:18 Source: patient Mode of arrival: ambulatory Limitations: no limitations History of Present Illness HPI narrative: 77-year-old female with pmh of COPD, DM, Invasive Ductal right carcinoma presents to the ED for evaluation after fall. Patient at baseline is confusion. Patient was a patient of [facility] ED and she eloped from the ED. Bystander called EMS while she was a block away from the hospital. patient states she fell. Patient was in the ED for pain control to be mandaged with morphin. Related Data Home Medications Medication Instructions Recorded Confirmed amantadine HCl 100 mg capsule 100 mg PO BID 10/21/22 01/24/23 amlodipine 2.5 mg tablet 2.5 mg PO DAILY 10/21/22 01/24/23 aspirin 81 mg tablet,delayed 81 mg PO DAILY 10/21/22 01/24/23 release (Adult Aspirin Regimen) cholecalciferol (vitamin D3) 1,250 1,250 mcg PO QWEEK 10/21/22 01/24/23 mcg (50,000 unit) tablet cyanocobalamin (vitamin B-12) 1,000 mcg PO DAILY 10/21/22 01/24/23 1,000 mcg capsule glycopyrrolate 1 mg tablet 1 mg PO BID 10/21/22 01/24/23 (Robinul) haloperidol 5 mg tablet 5 mg PO Q90D 10/21/22 01/24/23 lisinopril 20 mg tablet 20 mg PO DAILY 10/21/22 01/24/23 metformin 1,000 mg tablet 1,000 mg PO BID 10/21/22 01/24/23 simvastatin 10 mg tablet 10 mg PO DAILY@1700 10/21/22 01/24/23 trazodone 150 mg tablet 150 mg PO DAILY@1700 10/21/22 01/24/23 valproic acid (as sodium salt) 250 1,500 mg PO DAILY 10/21/22 01/24/23 mg/5 mL oral solution acetaminophen 325 mg tablet 650 mg PO Q4H PRN Fever Or Pain 11/10/22 01/24/23 paliperidone 6 mg tablet,extended 6 mg PO DAILY 11/10/22 01/24/23 release 24 hr (Invega) tolnaftate 1 % topical spray 1 spray topical WE 11/10/22 01/24/23 powder (Tinactin) lorazepam 2 mg tablet 2 mg PO Q90D PRN Anxiety 01/24/23 01/24/23 paliperidone palm (3 month) 819 819 mg IM Q90D 01/24/23 01/24/23 mg/2.63 mL intramuscular syringe (Invega Trinza) tramadol 50 mg tablet 50 mg PO Q8H PRN Pain 01/24/23 01/24/23 Previous Rx's Medication Instructions Recorded atropine 1 % eye drops 2 drp buccal Q2H PRN secretions 01/24/23 #30 mL haloperidol lactate 2 mg/mL oral 2 mg PO Q4H PRN agitation #30 mL 01/24/23 concentrate morphine concentrate 100 mg/5 mL 5 mg (0.25 mL) PO Q1H PRN pain #30 01/24/23 (20 mg/mL) oral solution mL Allergies Allergy/AdvReac Type Severity Reaction Status Date / Time Penicillins Allergy Unknown hives Verified 12/01/22 11:43 Review of Systems Review of Systems: Fall Yes all other systems are reviewed and are negative PMFSH Past Medical History Medical History Invasive ductal carcinoma of right breast Schizoaffective disorder, bipolar type Type 2 diabetes mellitus without complication Unspecified dementia, unspecified severity, with mood disturbance Surgical History History of lumpectomy of left breast History of surgery on extremity Family History Family History Mother Breast CA Social History Social History Household Members: Caregiver and Other Housing: Long-Term Alcohol intake: never Patient Tobacco Use Status: Never used Tobacco Smoked in Last 30 Days: No Use of substances other than those prescribed or required for medical reasons: No Advance Directives: Yes Advance Directives on File: Yes Advance Directives Date on File: 11/08/22 Current occupational status: disabled Physical Exam ED Vital Signs: Vital Signs - 24 hr 01/24/23 18:10 01/24/23 18:20 01/25/23 06:00 Temperature 99.5 F 98.3 F Pulse Rate 103 H 102 H 76 Respiratory Rate 18 13 Blood Pressure 144/82 H 106/52 L 124/45 L Pulse Oximetry 94 92 95 Oxygen Delivery Method Room Air Room Air Room Air 01/25/23 10:18 Temperature 98.4 F Pulse Rate 84 Respiratory Rate 16 Blood Pressure 147/46 H Pulse Oximetry 95 Oxygen Delivery Method Room Air BMI result Body Mass Index 37.1 Const General: cooperative, healthy appearing, comfortable and no acute distress [facility] Head: Yes normal to inspection, Yes No palpable skull fracture present, Yes normocephalic and Yes atraumatic Eyes General: appearance normal, both eyes and all related structures Neck Neck: Yes normal visual inspection, Yes full ROM, Yes no lymphadenopathy, Yes no meningeal signs, Yes trachea midline, Yes supple, No anterior neck swelling and No tender Chest Other: Right breast CA Chest palpation & inspection: normal inspection of the chest and normal palpation of entire chest wall Resp Effort & Inspection: normal respiratory effort and able to speak in complete sentences GI Inspection: Yes normal to inspection and No abdominal wall ecchymosis Palpation (GI): Soft to palpation, not firm, nontender, no guarding and not rigid General: No CVA tenderness and Yes no CVA tenderness Back/Spine/Pelvis Back: no CVA tenderness, No CVA tenderness and No back tenderness Skin General skin exam: no rashes or lesions noted and elasticity normal Neuro Other: Baseline confusion. General: gait normal, tone normal, moves all extremities, Normal light touch and pain sensation, no meningeal signs, no focal motor deficits, CN's II-XI intact bilaterally and normal sensation to monofilament Extrem General: Yes normal to inspection and Yes full ROM Psych Appearance: grossly normal, well kempt and not disheveled Course Course Course Narrative: 01/25/2023 0849: [facility] 01/25/2023 1202: Informed by CM that the patient's guardian was not contacted last night after eloping from the department. I attempted to call Ernestine Hernández at [phone] however, she did not answer. Ernestine's phone number did not have the option to leave a voicemail. 01/25/2023 1231: Ernestine was contacted and informed of the elopement last night. Medical Decision Making Medical Decision Making MDM Narrative: 77-year-old female patient of [facility] ER eloped from the ER brought back and fell. Will do imaging of head and neck. If imaging is normal Saint plan will continue for patient to receive morphine for pain control knee and if no improvement patient will be this as recommended by [facility]. 2:00am: Patient images came back negative for any traumatic life-threatening injuries. CT scan confirmed right breast cancer. Plan is for patient to be re- evaluated in the morning in terms of pain control with morphine to see if she should be admitted to hospice and to the hospital or discharged to [facility]. SIgned out to Dr. Muniz Differential Diagnosis Differential Diagnoses: The differential diagnosis associated with the presentation includes (Brain bleed, pneumothorax, spinal fracture, hip fracture, cervical spine fracture) Admission/Observation Consideration of admission/observation: Escalation of care including admission/observation considered Independent Interpretation I performed an independent interpretation of an: CT Scan Radiology Impression Discussion of test interpretation with radiology: I have reviewed the radiologist's reading. Independent Historian Clinical information obtained from an independent historian. History obtained from or confirmed by: EMS External Record Review External record reviewed: Other (Prior ED visit) Chronic Conditions Patient?s care impacted by: Cancer Discharge Plan Discharge Clinical Impression: Invasive ductal carcinoma of right breast, Fall Patient Disposition: Xfer SNF Transfer Details: Patient being discharged back to [facility] Instructions: Fall Prevention for Older Adults (ED) Prescriptions: No Action morphine concentrate 100 mg/5 mL (20 mg/mL) solution 5 mg PO Q1H PRN (Reason: pain) Qty: 30 0RF Rx Instructions: Hospice patient Partial Fill upon patient request. haloperidol lactate 2 mg/mL concentrate 2 mg PO Q4H PRN (Reason: agitation) Qty: 30 0RF atropine 1 % drops 2 drp buccal Q2H PRN (Reason: secretions) Qty: 30 0RF Invega Trinza 819 mg/2.63 mL syringe 819 mg IM Q90D lorazepam 2 mg tablet 2 mg PO Q90D PRN (Reason: Anxiety) Rx Instructions: GIVEN 1 HOUR BEFORE INVEGA TRINZA INJECTION tramadol 50 mg Tablet 50 mg PO Q8H PRN (Reason: Pain) acetaminophen 325 mg Tablet 650 mg PO Q4H PRN (Reason: Fever Or Pain) tolnaftate [Tinactin] 1 % Aerosol Powder 1 spray TOPICAL WE Rx Instructions: APPLY WEEKLY AFTER SHOWER paliperidone [Invega] 6 mg tablet extended release 24 hr 6 mg PO DAILY Rx Instructions: GIVE WHOLE IN LARGE AMOUNTS OF PUDDING TO HELP WITH SWALLOWING THIS PILL. simvastatin 10 mg tablet 10 mg PO DAILY@1700 trazodone 150 mg tablet 150 mg PO DAILY@1700 haloperidol 5 mg tablet 5 mg PO Q90D Rx Instructions: GIVEN 1 HOUR BEFORE INVEGA TRINZA INJECTION amlodipine 2.5 mg tablet 2.5 mg PO DAILY aspirin [Adult Aspirin Regimen] 81 mg tablet,delayed release (DR/EC) 81 mg PO DAILY lisinopril 20 mg tablet 20 mg PO DAILY cyanocobalamin (vitamin B-12) 1,000 mcg capsule 1,000 mcg PO DAILY valproic acid (as sodium salt) 250 mg/5 mL solution 1,500 mg PO DAILY Rx Instructions: MIX IN SMALL AMOUNTS OF BEVERAGE TO HELP ADMINISTRATION cholecalciferol (vitamin D3) 1,250 mcg (50,000 unit) tablet 1,250 mcg PO QWEEK Rx Instructions: ADMINISTER ON THE OF EACH MONTH amantadine HCl 100 mg capsule 100 mg PO BID glycopyrrolate [Robinul] 1 mg tablet 1 mg PO BID metformin 1,000 mg tablet 1,000 mg PO BID Referrals: [facility] [Outside] [facility] [Outside] ([facility] ) Interventions: ED Discharge Assessment Last Done: 01/25/23 15:49 Discharge Date/Time: 01/25/23 15:56
--- NOTE | 2023-01-24 20:10 | PC.NURSE ---
I assumed care of the pt at 1900. Pt is resting quietly in bed at this time, reporting no pain. Pt is Alert, responsive to verbal stimuli. Some confusion. Pt requested some apple juice and crackers. Her voice was muffled, but she is able to let her needs be known. Per Dr Crystal, pt will likely be with us overnight, and d/c back to [facility], on hospice medications, tomorrow.
--- NOTE | 2023-01-24 22:08 | PC.NURSE ---
Pt was assisted to commode by rosalia TRAN, able to stand and pivot. Pt had a dirty brief, was cleaned, and assisted back to bed. Warm blanket given.
[2023-01-25 06:00] VITALS: BP 124/45; PULSE 76; RESP 13; TEMP 36.8; O2SAT 95
--- NOTE | 2023-01-25 08:43 | MHC.CM.ED ---
Received notification that patient eloped overnight. Patient returned to ER. Patient will return to [facility] via BLS at 2pm. [facility] will admit patient to their service when patient returns to the facility. Hospice meds written by Stacey QUIJANO and sent to [facility] via [employer] Paper Rx will be sent to the facility with the patient. Continue to monitor for d/c needs.
[2023-01-25 10:18] VITALS: BP 147/46; PULSE 84; RESP 16; TEMP 36.9; O2SAT 95
--- NOTE | 2023-01-25 10:18 | PC.NURSE ---
continues to rest quietly on stretcher, respirations even and unlabored. pt moved to 22H, awaiting EMS transport back to facility - approx 1400.
== END 2023-01-25 15:56 | disposition skilled nursing facility (03) ==
PROVIDERS: Emergency Provider Emergency Medicine; PCP Emergency Medicine
DX: C50.911 Malignant neoplasm of unspecified site of right female breast (principal); Z91.81 History of falling
CPT/HCPCS: 70450; 71250; 72125; 74176; 99284